=== PATIENT | female | born 1985 | race Caucasian/White ===

== ENCOUNTER 2019-09-07 21:09 | Emergency (ER) | payer BC ==
[~2019-09-07] VITALS: Ht 160 cm; Wt 50.6 kg
[~2019-09-07 21:09] MED LIST: IBUP-1542 PO; OXYC5CAP17 PO
[2019-09-07 21:12] VITALS: Ht 160 cm; Wt 50.6 kg
[2019-09-07] MEDS ORDERED: SOD CHLORIDE 0.9% 1,000 ML IV STA (22:36)
[2019-09-07] MEDS ORDERED: ONDANSETRON 4 MG INJ IV STA (22:36)
[2019-09-07] MEDS ORDERED: morphine 4 MG/ML VIAL IV STA (22:36)
[2019-09-07] MEDS ORDERED: KETOROLAC 30 MG INJ IV STA (22:36)
[2019-09-08 01:39] VITALS: BP 117/64; PULSE 65; RESP 17
== END 2019-09-08 01:44 | disposition home or self-care (01) ==
LOC: FTE 21:09
DX: K80.20 Calculus of gallbladder without cholecystitis without obstruction (principal); R74.0 Nonspecific elevation of levels of transaminase and lactic acid dehydrogenase [LDH]
CPT/HCPCS: 76705; 80053; 81001; 81025; 83690; 85025; 96361; 96374; 96375; 99285; J1885; J2270; J2405; J7030